=== PATIENT | male | born 1975 | race Caucasian/White ===

== ENCOUNTER 2017-12-30 20:21 | Emergency (ER) | payer MEDICAID ==
[~2017-12-30] VITALS: Ht 165.1 cm; Wt 107.0 kg
[2017-12-30 22:04] LABS: BASOPHIL % 0.4 % (0-2); PLATELET COUNT 270 x10^3mcL (130-400)
[2017-12-30 22:10] LABS: CALCIUM 8.4 mg/dL (8.5-10.1); CARBON DIOXIDE 28.1 mmol/L (21-32); CHLORIDE SERUM 101 mmol/L (98-107); CREATININE SERUM 0.7 mg/dL (0.7-1.3); GFR1 > 60 mL/min; GLUCOSE SERUM 152 mg/dL (74-106); POTASSIUM SERUM 3.4 mmol/L (3.5-5.1); SODIUM SERUM 137 mmol/L (136-145)
[2017-12-30 22:15] LABS: ALBUMIN 3.6 g/dL (3.4-5.0); ALKALINE PHOSPHATASE 151 U/L (46-116); ALT/SGPT 77 U/L (16-63); AST/SGOT 66 U/L (15-37); BILIRUBIN TOTAL 0.3 mg/dL (0.20-1.00)
[2017-12-30 22:17] LABS: TOTAL PROTEIN, SERUM 8.3 g/dL (6.4-8.2)
[2017-12-31 01:39] VITALS: BP 169/96
== END 2017-12-31 01:39 | disposition home or self-care (01) ==
LOC: ED 20:21
PROVIDERS: Emergency Medicine
DX: F10.239 Alcohol dependence with withdrawal, unspecified (principal); Y90.0 Blood alcohol level of less than 20 mg/100 ml
CPT/HCPCS: G0480; J2060; J3411; J3475; J3490; J7030; Q0092

== ENCOUNTER 2018-06-10 22:59 | Emergency (ER) | payer SELFPAY ==
[~2018-06-10] VITALS: Ht 167.6 cm; Wt 102.1 kg
[2018-06-10 23:15] VITALS: Ht 167.6 cm; Wt 102.1 kg
[2018-06-11 01:15] LABS: microscopic required? NO
[2018-06-11 01:29] VITALS: BP 150/83
[2018-06-11 01:48] LABS: BASOPHIL % 0.4 % (0-2); PLATELET COUNT 255 x10^3mcL (130-400); RED CELL DISTRIBUTION WIDTH 14.1 % (11.5-14.5)
[2018-06-11 01:53] LABS: CALCIUM 7.9 mg/dL (8.5-10.1); CARBON DIOXIDE 27.7 mmol/L (21-32); CHLORIDE SERUM 104 mmol/L (98-107); CREATININE SERUM 0.6 mg/dL (0.7-1.3); GFR1 > 60 mL/min; GLUCOSE SERUM 119 mg/dL (74-106); POTASSIUM SERUM 3.5 mmol/L (3.5-5.1); SODIUM SERUM 141 mmol/L (136-145)
[2018-06-11 01:57] LABS: urine erythrocyte NEGATIVE (NEGATIVE)
[2018-06-11 01:59] LABS: ALBUMIN 3.3 g/dL (3.4-5.0); ALKALINE PHOSPHATASE 165 U/L (46-116); ALT/SGPT 71 U/L (16-63); AST/SGOT 53 U/L (15-37); BILIRUBIN TOTAL 0.15 mg/dL (0.20-1.00); LIPASE 179 IU/L (73-393); TOTAL PROTEIN, SERUM 7.6 g/dL (6.4-8.2)
[2018-06-11 02:04] LABS: AMPHETAMINE QUAL UR NONE DETECTED (See below)
== END 2018-06-11 02:50 | disposition left against medical advice (07) ==
LOC: ED 22:59
PROVIDERS: Emergency Medicine
DX: R00.2 Palpitations (principal); R25.1 Tremor, unspecified; R11.0 Nausea
CPT/HCPCS: 36415

== ENCOUNTER 2018-06-11 10:35 | Emergency (ER) | payer SELFPAY ==
[~2018-06-11] VITALS: Ht 167.6 cm; Wt 108.9 kg
[2018-06-11 10:39] VITALS: Ht 167.6 cm; Wt 108.9 kg
[2018-06-11 11:38] LABS: BASOPHIL % 0.3 % (0-2); PLATELET COUNT 247 x10^3mcL (130-400); RED CELL DISTRIBUTION WIDTH 13.7 % (11.5-14.5)
[2018-06-11 11:42] LABS: CALCIUM 9.2 mg/dL (8.5-10.1); CARBON DIOXIDE 28.2 mmol/L (21-32); CHLORIDE SERUM 101 mmol/L (98-107); CREATININE SERUM 0.7 mg/dL (0.7-1.3); GFR1 > 60 mL/min; GLUCOSE SERUM 106 mg/dL (74-106); POTASSIUM SERUM 3.6 mmol/L (3.5-5.1); SODIUM SERUM 137 mmol/L (136-145)
[2018-06-11 11:46] LABS: ALBUMIN 3.8 g/dL (3.4-5.0); ALKALINE PHOSPHATASE 153 U/L (46-116); ALT/SGPT 74 U/L (16-63); AST/SGOT 51 U/L (15-37); BILIRUBIN TOTAL 0.37 mg/dL (0.20-1.00); CHOLESTEROL 172 mg/dL (<200); CHOLESTEROL/HDL RATIO 3.2; HDL CHOLESTEROL 53 mg/dL (40-60); LIPASE 127 IU/L (73-393); TRIGLYCERIDES 135 mg/dL (<150)
[2018-06-11 11:49] LABS: T3 TOTAL 0.74 ng/mL; TOTAL PROTEIN, SERUM 8.3 g/dL (6.4-8.2)
[2018-06-11 11:57] LABS: FREE T4 0.78 ng/dL (0.76-1.46); FREE THYROXINE INDEX 2.1 ug/dL (1.4-4.5); T4(THYROXINE) 6.3 ug/dL (4.7-13.3)
[2018-06-11 13:30] VITALS: BP 156/95
== END 2018-06-11 13:30 | disposition home or self-care (01) ==
LOC: ED 10:35
PROVIDERS: Specialist
DX: F10.239 Alcohol dependence with withdrawal, unspecified (principal); K70.9 Alcoholic liver disease, unspecified; I10 Essential (primary) hypertension; Y90.9 Presence of alcohol in blood, level not specified
CPT/HCPCS: 83880; 84439; J2060; J3411; J3475; J3490; J7030